=== PATIENT | male | born 1985 | race Caucasian/White ===

== ENCOUNTER 2018-07-12 07:04 | Emergency (ER) | payer OTHER ==
[2018-07-12 07:10] VITALS: BP 109/80
[2018-07-12] MEDS ORDERED: CEPHALEXIN 500 MG CAP PO ONE (07:33)
--- NOTE | 2018-07-12 07:34 | EDPHY ---
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 Yesterday he noticed some pain and swelling around the crack and on the fat pad of his thumb. It woke him up from sleep early this morning because of pain. He has not had a fever. Normal range of motion of his joints. No involvement of the finger nail or nail bed. Severity: Moderate Modifying factors: None REVIEW OF SYSTEMS: Constitutional: denies: chills, fever, recent illness, recent injury EENTM: denies: blurred vision, double vision, nose congestion Respiratory: denies: cough, shortness of breath Cardiac: denies: chest pain, irregular heart rate, lightheadedness, palpitations Gastrointestinal/Abdominal: denies: abdominal pain, diarrhea, nausea, vomiting, blood streaked stools Genitourinary: denies: dysuria, frequency, hematuria, pain Musculoskeletal: denies: joint pain, muscle pain Skin: See HPI Neurological: denies: headache, numbness, paresthesia, tingling, dizziness, weakness Hematologic/Lymphatic: denies: blood clots, easy bleeding, easy bruising Immunologic/allergic: denies: HIV/AIDS, transplant 10 systems reviewed and negative except as noted EXAM: GENERAL: Well-appearing, well-nourished and in no acute distress. HEAD: Atraumatic, normocephalic. EYES: Pupils equal round and reactive to light, extraocular movements intact, sclera anicteric, conjunctiva are normal. ENT: TMs normal, nares patent, oropharynx clear without exudates. Moist mucous membranes. NECK: Normal range of motion, supple without lymphadenopathy or JVD. LUNGS: Breath sounds clear to auscultation bilaterally and equal. No wheezes rales or rhonchi. HEART: Regular rate and rhythm without murmurs, rubs or gallops. ABDOMEN: Soft, nontender, normoactive bowel sounds. No guarding, no rebound. No masses appreciated. BACK: No CVA tenderness, no spinal tenderness, step-offs or deformities EXTREMITIES: Normal range of motion, no pitting or edema. No clubbing or cyanosis. NEUROLOGICAL: Cranial nerves II through XII grossly intact. Normal speech, normal gait. 5/5 strength, normal movement in all extremities, normal sensation , normal reflexes PSYCH: Normal mood, normal affect. SKIN: Patient has a mild wound infection to his left thumb. He has a less than 1 cm crack/wound to the tip of his thumb. There is the slight cellulitic component to the fat pad of his. No appreciable fell on her abscess felt. No paronychia. Source: Patient Exam Limitations: No limitations - Personal History Current Tetanus/Diphtheria Vaccine: Unsure Current Tetanus Diphtheria and Acellular Pertussis (TDAP): Unsure - Medical/Surgical History Hx Asthma: No Hx Chronic Respiratory Disease: No Hx Diabetes: No Hx Cardiac Disease: No Hx Renal Disease: No Hx Cirrhosis: No Hx Alcoholism: No Hx HIV/AIDS: No Hx Splenectomy or Spleen Trauma: No Other PMH: denies - Family History Significant Family History: No pertinent family hx - Social History Smoking Status: Never smoked Alcohol Use: Sober Drug Use: None Constitutional: Initial Vital Signs Temperature (C) 36.7 C 07/12/18 07:08 Heart Rate 75 07/12/18 07:08 Respiratory Rate 16 07/12/18 07:08 Blood Pressure 109/80 07/12/18 07:08 O2 Sat (%) 97 07/12/18 07:08 O2 Delivery Mode Room Air Allergies/Adverse Reactions: No Known Allergies Allergy (Unverified 07/12/18 07:07) Home Medications: Medication Instructions Recorded Cephalexin [Keflex] 500 mg PO TID #21 cap 07/12/18 Medical Decision Making ED Course/Re-evaluation: Patient has a very early wound infection. There is no abscess at this point. No felon. I will start him on Keflex. I advised him to return in 48 hr if his symptoms are not significantly improved. He understands and agrees this plan. Differential Diagnosis: Partial list of the Differential diagnosis considered include but were not limited to; wound infection, cellulitis, felon and although unlikely based on the history and physical exam, I also considered paronychia, osteomyelitis, septic joint. I discussed these differential diagnoses and the plan with the patient as well as the usual and expected course. The patient understands that the diagnosis is provisional and that in medicine we are not always correct and that further workup is often warranted. Usual and customary warnings were given. All of the patient's questions were answered. The patient was instructed to return to the emergency department should the symptoms at all worsen or return, otherwise to followup with the physician as we discussed. - Data Points Medications Given: Discontinued Medications Cephalexin HCl (Keflex) 500 mg PO EDNOW ONE PRN Reason: Protocol Stop: 07/12/18 07:34 Last Admin: 07/12/18 08:02 Dose: 500 mg Departure - Departure Disposition: Home, Routine, Self-Care Clinical Impression: Thumb infection skin right Condition: Fair Instructions: Wound Infection (DC), Cellulitis (ED) Referrals: NONE *PRIMARY CARE P,. [Primary Care Provider] - As per Instructions Prescriptions: Cephalexin [Keflex] 500 mg PO TID #21 cap
== END 2018-07-12 08:04 | disposition home or self-care (01) ==
DX: L08.9 Local infection of the skin and subcutaneous tissue, unspecified (principal)